=== PATIENT | male | born 1970 | race Caucasian/White ===

== ENCOUNTER → 2017-03-08 | Outpatient (CLI) | payer BC ==
--- NOTE | 2017-03-08 15:22 | XCELERA REPORT ---
[address] [address] Lower Extremity Venous Evaluation Name: LUCIO KING Age: 47 yrs Gender: Male : 1970 Patient Status: Outpatient Patient Location: Study Date: 03/08/2017 01:12 PM Procedure: Color flow and duplex imaging bilaterally of the veins of the lower extremities as well as the Common Femoral veins. Reason For Study: PAIN Ordering Physician: CYNDY TREVINO Performed By: Nasrin Swartz Right Sided Venous Evaluation Avascular mass noted near the knee, area of concern. 3.5 x 4 mm, in subcutaneous tissue. Normal vessel filling wall to wall, compression and augmentation as well as Colour flow down to the infrageniculate veins. Left Sided Venous Evaluation Normal vessel filling wall to wall, compression and augmentation as well as Colour flow down to the infrageniculate veins. Interpretation Summary No duplex evidence of DVT or obstruction in the bilateral lower extremities. Tiny area of echolucency, no vascular, near right knee. : CYNDY TREVINO > Cyndy Trevino
== END ==
LOC: SP 13:04
PROVIDERS: ATTEND Surgery
DX: M79.606 Pain in leg, unspecified (principal); M79.89 Other specified soft tissue disorders
CPT/HCPCS: 93970

== ENCOUNTER → 2017-04-14 | Outpatient (CLI) | payer BC ==
--- NOTE | 2017-04-14 15:28 | RADIOLOGY REPORT (SQ) ---
EXAM DESCRIPTION: FOOT LEFT COMPLETE COMPLETED DATE/TIME: 04/14/2017 3:11 pm REASON FOR STUDY: PAIN IN LEFT FOOT M79.672 PAIN IN LEFT FOOT COMPARISON: None. NUMBER OF VIEWS: Three views. TECHNIQUE: AP, lateral and oblique without weight bearing radiographic images acquired of the left f oot. LIMITATIONS: None. FINDINGS: MINERALIZATION: Normal. BONES: No acute fracture or dislocation. No worrisome bone lesions. Fairly prominent plantar calcanea l spur. JOINTS: No erosions. No isatu-articular osteopenia. No chondrocalcinosis. SOFT TISSUES: No swelling. No calcifications. OTHER: No other significant finding. IMPRESSION: HEEL SPUR. NO OTHER SIGNIFICANT FINDINGS. TECHNICAL DOCUMENTATION: JOB ID: [id number] [employer]- All Rights Reserved
== END ==
LOC: OD 14:51
PROVIDERS: ATTEND Nurse Practitioner Acute Care
DX: M79.672 Pain in left foot (principal); M77.32 Calcaneal spur, left foot

== ENCOUNTER 2019-02-16 13:22 | Observation (INO) | payer BC ==
--- NOTE | 2019-02-16 13:27 | ER Document Report ---
ED Medical Screen (RME) <MARIFER VINCENT - Last Filed: 02/16/19 17:01> - General Mode of Arrival: Ambulatory Information source: Patient TRAVEL OUTSIDE OF THE [place] IN LAST 30 DAYS: No <MAISHA MURARY - Last Filed: 02/17/19 10:09> - General Chief Complaint: Breathing Difficulty Stated Complaint: DIFFICULTY BREATHING Time Seen by Provider: 02/16/19 13:25 - Related Data Allergies/Adverse Reactions: No Known Allergies Allergy (Unverified 02/16/19 13:28) Physical Exam - Vital signs Vitals: Temp Pulse Resp BP Pulse Ox 97.8 F 78 16 173/91 H 98 02/16/19 13:44 02/16/19 13:44 02/16/19 13:44 02/16/19 13:44 02/16/19 13:44 Course - Laboratory Result Diagrams: 02/16/19 13:40 02/16/19 13:40 <MARIFER VINCENT - Last Filed: 02/16/19 17:01> - Laboratory Result Diagrams: 02/17/19 06:16 02/16/19 13:40 <MAISHA MURRAY - Last Filed: 02/17/19 10:09> - Vital Signs Vital signs: Temp Pulse Resp BP Pulse Ox 97.9 F 81 16 155/68 H 95 02/17/19 08:37 02/17/19 08:37 02/17/19 08:37 02/17/19 08:37 02/17/19 08:37 - Laboratory Laboratory results interpreted by me: 02/16/19 02/16/19 13:40 13:40 RBC 5.63 H Hgb 17.8 H Hct 51.3 H C-Reactive Protein 15.7 H Doctor's Discharge <MARIFER VINCENT - Last Filed: 02/16/19 17:01> <MAISHA MURRAY - Last Filed: 02/17/19 10:09> - Discharge Condition: Stable Disposition: ADMITTED OBSERVATION
[2019-02-16] MEDS ORDERED: KETOROLAC TROMETHAMINE INJ/PF 30 MG/1 ML SDV IV ONE (13:28)
[2019-02-16] MEDS ORDERED: DEXAMETHASONE SOD PHOS INJ 10 MG/1 ML VIAL IV ONE (13:28)
[2019-02-16] MEDS ORDERED: NORMAL SALINE 1000 ML 1,000 ML IV ONE (13:29)
[2019-02-16] MEDS ORDERED: AMPICILLIN SOD/SULBACTAM 3 GM VIAL IV ONE (13:52)
[2019-02-16 14:25] LABS: ABSOLUTE EOSINOPHILS # (AUTO) 0.4 10^3/uL (0.0-0.6); ABSOLUTE LYMPHOCYTES (AUTO) 2.5 10^3/uL (0.5-4.7); ABSOLUTE MONOCYTES (AUTO) 0.5 10^3/uL (0.1-1.4); ABSOLUTE NEUT (AUTO) 5.8 10^3/uL (1.7-8.2); BASOPHILS % (AUTO) 0.5 % (0-2); HEMATOCRIT 51.3 % (37.9-51.0); HEMOGLOBIN 17.8 g/dL (13.5-17.0); LYMPHOCYTES % (AUTO) 26.7 % (13-45); MEAN CORPUSCULAR HEMOGLOBIN 31.6 pg (27.0-33.4); MEAN CORPUSCULAR HGB CONC 34.7 g/dL (32.0-36.0); MEAN CORPUSCULAR VOLUME 91 fl (80-97); MONOCYTES % (AUTO) 5.8 % (3-13); PLATELET COUNT 340 10^3/uL (150-450); RED BLOOD COUNT 5.63 10^6/uL (4.35-5.55); RED CELL DISTRIBUTION WIDTH 13.3 % (11.5-14.0); TOTAL CELLS COUNTED % (AUTO) 100 %; WHITE BLOOD COUNT 9.2 10^3/uL (4.0-10.5)
[2019-02-16 14:33] LABS: ALBUMIN 4.3 g/dL (3.5-5.0); ALKALINE PHOSPHATASE 86 U/L (38-126); ANION GAP 11 (5-19); ASPARTATE AMINO TRANSFERASE 22 U/L (17-59); BILIRUBIN,DIRECT 0.1 mg/dL (0.0-0.4); BILIRUBIN,TOTAL 0.7 mg/dL (0.2-1.3); BLOOD UREA NITROGEN 9 mg/dL (7-20); C-REACTIVE PROTEIN 15.7 mg/L (<10.0); CALCIUM 9.4 mg/dL (8.4-10.2); CARBON DIOXIDE 28 mmol/L (22-30); CHLORIDE 104 mmol/L (98-107); GLUCOSE 91 mg/dL (75-110); POTASSIUM 4.3 mmol/L (3.6-5.0); TOTAL PROTEIN 7.6 g/dL (6.3-8.2)
[2019-02-16 15:08] LABS: ERYTHROCYTE SEDIMENTATION RATE 11 mm/hr (0-15)
--- NOTE | 2019-02-16 15:21 | RADIOLOGY REPORT (SQ) ---
EXAM DESCRIPTION: CT SOFT TISSUE NECK WITH COMPLETED DATE/TIME: 02/16/2019 3:05 pm REASON FOR STUDY: swelling front of neck difficulty swallowing COMPARISON: None. TECHNIQUE: Post IV contrasted scanning from skull base through lung apices with review of bone, soft tissue and lung windows. Reconstructed coronal and sagittal MPR images reviewed. All images stored on PACS. All CT scanners at this facility use dose modulation, iterative reconstruction, and/or weight based d osing when appropriate to reduce radiation dose to as low as reasonably achievable (ALARA). [facility]: Dose Right [facility]: CareDose [facility]: Dose Right [facility]: Teradose 4D [facility]: Style [employer]box CONTRAST TYPE AND DOSE: contrast/concentration: Isovue 350.00 mg/ml; Total Contrast Delivered: 75.0 ml; Total Saline Delivered: 55.0 ml RENAL FUNCTION: None required. The patient is less than 50 years old. RADIATION DOSE: CT Rad equipment meets quality standard of care and radiation dose reduction techniq ues were employed. CTDIvol: 17.6 mGy. DLP: 475 mGy-cm. . LIMITATIONS: None. FINDINGS: SKULL BASE: Intact. MAJOR SALIVARY GLANDS: No solid or cystic masses. No inflammatory changes. LYMPHADENOPATHY: Scattered relatively shotty lymph nodes in the anterior neck. Includes small submen tony nodes close to what appears to be the region of interest, measuring up to 1.1 cm in short axis. MUCOSAL MASSES OR ASYMMETRY: Mild thickening of the uvula. Mild posterior demetrius pharyngeal generalized mucosal thickening, some of which may be accentuated by congenital aberrant medial course of the car otid arteries. There is debris in the vallecula with airway narrowing at the level of the epiglottis . The epiglottis itself looks normal thickness with normal appearance of the aryepiglottic folds. LARYNX/CORDS: No abnormal findings. VASCULAR STRUCTURES: No evidence of occlusion or stenosis. No venous clot detected. LUNG APICES: Clear. BONES: Intact. THYROID: Normal size. No masses. PARANASAL SINUSES: Clear. OTHER: No other significant finding. IMPRESSION: 1. Mild adenopathy. Includes slightly conspicuous submental anterior neck nodes but no drainable abs cess. 2. Mild pharyngeal thickening. Consider pharyngitis. No evidence of discrete mucosal based mass or abscess. TECHNICAL DOCUMENTATION: JOB ID: [id number] Quality ID # [id number]: Final reports with documentation of one or more dose reduction techniques (e.g., Au tomated exposure control, adjustment of the mA and/or kV according to patient size, use of iterative reconstruction technique) 2010 [employer]- All Rights Reserved Reading location - IP/workstation name: [email or web address]
[2019-02-16] MEDS ORDERED: PROMETHAZINE HCL 25 MG TABLET PO PRN (18:36)
[2019-02-16] MEDS ORDERED: MAG HYDROX/AL HYDROX/SIMETH SUSP 30 ML UDCUP PO PRN (18:36)
[2019-02-16] MEDS ORDERED: ACETAMINOPHEN 325 MG TABLET PO PRN (18:36)
[2019-02-16] MEDS ORDERED: DOCUSATE SODIUM 100 MG CAPSULE PO PRN (18:36)
[2019-02-16] MEDS ORDERED: NORMAL SALINE 1000 ML 1,000 ML IV PRN (18:36)
[2019-02-16] MEDS ORDERED: LEVALBUTEROL HCL NEB 1.25 MG/3 ML AMPUL NEB PRN (18:36)
[2019-02-16] MEDS ORDERED: HYDRALAZINE HCL INJ/PF 20 MG/1 ML SDV IV PRN (18:59)
--- NOTE | 2019-02-16 19:29 | PDOC H&P ---
History of Present Illness Admission Date/PCP: CINDI DE DIOS MD Patient complains of: Throat pain with difficulty breathing History of Present Illness: LUCIO KING is a 49 year old male who woke up this morning at approximately 5:00 AM. He went to the bathroom. At that time he felt his throat was a little scratchy and he felt he might be getting a cold. He then went into the bathroom at 6:30 AM and by this time his throat was very sore and it was difficult to breathe. His breathing became noisy. He had discomfort in the submandibular area across the mandible. He did not experience any nausea or vomiting. He had no palpitations. He did not report swelling in any other part of his body. Because of the difficulty breathing and progression of his symptoms rather than relief he presented to the emergency department. In the emergency department it was difficult to have an extended look into the oropharynx however there was no marked swelling or areas of drainage. A CT scan revealed no soft tissue masses. He was given 10 mg of Decadron by intravenous as well as a dose of antibiotics. Otol[facility]ology at [facility] was consulted. After the steroids the patient improved. He did not have an elevated white blood cell count however he did have slight elevation in his C-reactive protein. There was no pronounced presence of eosinophils. Serum chemistries were unremarkable. He was not hypoxic and he was afebrile. The only other noticeable positive feature was his hypertension. After discussion with otolaryngology it was felt that the safest course would be to admit the patient for observation overnight for ad ditional steroids and antibiotics and if improved discharge in the morning. The patient was admitted by the hospitalist service. Past Medical History Cardiac Medical History: Reports: None Pulmonary Medical History: Reports: None EENT Medical History: Reports: None Neurological Medical History: Reports: Migraine, Other - Restless legs Endocrine Medical History: Reports: Obesity Renal/ Medical History: Reports: None Malignancy Medical History: Reports: None GI Medical History: Reports: None Musculoskeltal Medical History: Reports: Arthritis, Other - Chronic low back pain. Early onset neck pain. Skin Medical History: Reports: None Psychiatric Medical History: Reports: None Traumatic Medical History: Reports: None Hematology: Reports: None Infectious Medical History: Reports: None Past Surgical History Past Surgical History: Reports: Appendectomy, Tonsillectomy Social History Information Source: Patient Occupation: Patient is and lives at home with his and daughter. 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 Lives with: Family Smoking Status: Never Smoker Electronic Cigarette use?: No Frequency of Alcohol Use: Rare Hx Recreational Drug Use: No Drugs: None Hx Prescription Drug Abuse: No - Advance Directive Resuscitation Status: Full Code Surrogate healthcare decision maker:: His would be the designated decision maker Family History Family History: Hypertension, Other - Alcoholism with cirrhosis Parental Family History Reviewed: Yes Children Family History Reviewed: Yes Sibling(s) Family History Reviewed.: Yes Medication/Allergy Allergies/Adverse Reactions: No Known Allergies Allergy (Unverified 02/16/19 13:28) Review of Systems Constitutional: PRESENT: weight loss - Intentional weight loss 45 pounds. ABSENT: anorexia, fatigue, fever(s), headache(s), night sweats Eyes: ABSENT: visual disturbances Ears: ABSENT: hearing changes Nose, Mouth, and Throat: PRESENT: sore throat. ABSENT: headache(s), mouth pain, vertigo Cardiovascular: PRESENT: edema. ABSENT: chest pain, dyspnea on exertion, palpitations Respiratory: PRESENT: dyspnea - Prior to treatment. ABSENT: cough, hemoptysis Gastrointestinal: ABSENT: abdominal pain, constipation, diarrhea, heartburn, nausea, vomiting Genitourinary: PRESENT: nocturia. ABSENT: difficulty urinating, hematuria Musculoskeletal: PRESENT: back pain. ABSENT: deformity, joint swelling Integumentary: PRESENT: other - Recent ant bites Neurological: PRESENT: restless legs, tingling - Only on occasion in his toes.. ABSENT: abnormal gait, abnormal speech, convulsions, memory loss Psychiatric: ABSENT: anxiety, depression, hallucinations Endocrine: ABSENT: cold intolerance, heat intolerance, polyuria Hematologic/Lymphatic: ABSENT: easy bleeding, easy bruising, lymphadenopathy Allergic/Immunologic: ABSENT: seasonal rhinorrhea Physical Exam Vital Signs: Temp Pulse Resp BP Pulse Ox 97.0 F 78 20 155/87 H 95 02/16/19 17:01 02/16/19 13:44 02/16/19 18:32 02/16/19 18:32 02/16/19 18:32 Intake & Output 02/15/19 02/16/19 02/17/19 06:59 06:59 05:59 Intake Total 1000 Balance 1000 Weight 136 kg General appearance: PRESENT: no acute distress, cooperative, morbidly obese, well-developed Head exam: PRESENT: atraumatic, normocephalic Eye exam: PRESENT: conjunctiva pink, EOMI, PERRLA. ABSENT: conjunctival injection, nystagmus, scleral icterus Ear exam: PRESENT: normal external ear exam. ABSENT: bleeding, drainage Mouth exam: PRESENT: dry mucosa, neck supple, tongue midline Teeth exam: ABSENT: poor dentation Throat exam: PRESENT: post pharyngeal erythema - Mild. ABSENT: tonsillar exudate Neck exam: PRESENT: full ROM - Neck discomfort at extreme left or right rotation, other - Very large neck. ABSENT: lymphadenopathy, tenderness Respiratory exam: PRESENT: clear to auscultation monik, symmetrical, unlabored. ABSENT: accessory muscle use, rales, rhonchi, stridor, tachypnea, wheezes Cardiovascular exam: PRESENT: RRR, +S1, +S2. ABSENT: diastolic murmur, gallop, systolic murmur GI/Abdominal exam: PRESENT: normal bowel sounds, soft, other - Protuberant abdomen. ABSENT: guarding, tenderness Rectal exam: PRESENT: deferred Gentrourinary exam: ABSENT: indwelling catheter Extremities exam: PRESENT: full ROM, +1 edema, other - Right fifth finger with some swelling proximally. Some residual swelling in the hyperthenar area. ABSENT: calf tenderness, joint swelling Musculoskeletal exam: PRESENT: ambulatory, full ROM, normal inspection Neurological exam: PRESENT: alert, awake, oriented to person, oriented to place, oriented to time, oriented to situation, CN II-XII grossly intact. ABSENT: abnormal gait, motor sensory deficit Psychiatric exam: PRESENT: appropriate affect, normal mood. ABSENT: agitated, anxious Focused psych exam: ABSENT: delusional, paranoid, restlessness Skin exam: PRESENT: dry, erythema - Slight area of erythema on the right fifth finger with swelling, normal color, other - Some pigment deposition on the legs. ABSENT: rash, vesicles Results Laboratory Results: 02/16/19 13:40 02/16/19 13:40 02/16/19 02/16/19 13:40 13:40 WBC 9.2 RBC 5.63 H Hgb 17.8 H Hct 51.3 H MCV 91 MCH 31.6 MCHC 34.7 RDW 13.3 Plt Count 340 Seg Neutrophils % 63.0 Sodium 143.1 Potassium 4.3 Chloride 104 Carbon Dioxide 28 Anion Gap 11 BUN 9 Creatinine 0.73 Est GFR ( Amer) > 60 Glucose 91 Calcium 9.4 Total Bilirubin 0.7 AST 22 Alkaline Phosphatase 86 C-Reactive Protein 15.7 H Total Protein 7.6 Albumin 4.3 Impressions: Soft Tissue Neck CT 02/16/19 13:30 IMPRESSION: 1. Mild adenopathy. Includes slightly conspicuous submental anterior neck nodes but no drainable abscess. 2. Mild pharyngeal thickening. Consider pharyngitis. No evidence of discrete mucosal based mass or abscess. Assessment and Plan - Diagnosis (1) Pharyngitis, acute Qualifiers: Pharyngitis/tonsillitis etiology: unspecified etiology Qualified Code(s): J02.9 - Acute pharyngitis, unspecified Is this a current diagnosis for this admission?: Yes Plan: February 16, 2019-the patient developed an acute pharyngitis that developed early this morning and progressed to difficulty breathing by noon. He felt that his breathing was tight. He felt swollen and tender in the submandibular areas. He denied lightheadedness or dizziness. He was not exposed to any materials or agents that were new. He did not eat anything out of the ordinary relative to his regular diet. He had a slightly elevated CRP and CT scan of the neck did not show any masses. He was given 10 mg of Decadron and 1 dose of Unasyn. He stated that after the steroids he felt significant relief. The pain in the submandibular areas decreased and almost completely resolved. He did not have a sense of tight breathing. I believe the acute pharyngitis was somehow related to an allergic reaction that is unidentifiable at this time. Despite a negative rapid strep screen the mechanical engineering coop who was consulted suggested dual antibiotic therapy with Unasyn and clindamycin for tonight. Mother not we will continue these antibiotics will depend on the patient's status in the morning. (2) Acute allergic reaction Qualifiers: Encounter type: initial encounter Qualified Code(s): T78.40XA - Allergy, unspecified, initial encounter Is this a current diagnosis for this admission?: Yes Plan: February 16, 2019-as noted above I believe this is an acute allergic reaction causing the pharyngitis, swelling of the submandibular areas and difficulty breathing. The relief with IV Decadron cannot be ignored. It did not act like a parotitis. There was no abscess or other abnormal tissue finding in the neck. The CT scan was obtained after the intravenous steroid dose. He will be admitted and given additional doses of Decadron through the night. (3) Hypertension Qualifiers: Hypertension type: essential hypertension Qualified Code(s): I10 - Essential (primary) hypertension Is this a current diagnosis for this admission?: Yes Plan: February 16, 2019-the patient's blood pressure was elevated on admission. This could be secondary to his clinical state. There is, however, a strong family history of hypertension. The patient also mentioned that his ankles tend to swell. He did report and bite several days ago but this should not result in leg swelling and the leg swelling has been going on for some time. He even reports that if he eats salt the swelling gets worse. Because of the edema and systolic hypertension I have opted to start the patient on hydrochlorothiazide 25 mg daily. I will continue this at the time of discharge. He will be monitored on telemetry and have vital signs every 4 hours. (4) Edema Qualifiers: Edema type: localized Qualified Code(s): R60.0 - Localized edema Is this a current diagnosis for this admission?: Yes Plan: February 16, 2019-the edema is limited to the lower extremities. He does have some swelling on his right fifth finger but this he feels may be related to another ant bite. He has 1+ pitting edema on both legs and in fact states that it can get worse at times. 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 I explained that this could be significant and related to his high blood pressure and that he needs to follow-up with Dr. De Dios at discharge. (5) Mechanical low back pain Is this a current diagnosis for this admission?: Yes Plan: Room the 2018-the patient has a long history of mechanical back pain. He states that he "threw out his back "when he was young. It is not been the same ever since. It gets so bad that sometimes he cannot turn to the right or left. This typically happens when he is in a seated position, such as driving his truck, for extended periods. We reviewed the benefits of weight loss. Other atypical treatments such as acupuncture could be helpful. He is also starting to have neck pain and I believe this could be similarly mechanical/osteoarthritic. (6) Morbid obesity with BMI of 40.0-44.9, adult Is this a current diagnosis for this admission?: Yes Plan: February 16, 2019-the patient was congratulated since he has lost 45 pounds since he started dieting. With a body mass index of 43 he is still morbidly obese. His reports that he snores. He reports that he typically sleeps in a chair. He was not hypoxic but he certainly could have morbid obesity hypoventilation when supine. He is dieting and his states that his compliance is good. I believe this otherwise he would not have lost 45 pounds. His ongoing diet was encouraged. He must also follow low-sodium guidelines. - Plan Summary Summary: The plan is to admit the patient for observation. Continue steroids and antibiotics. I have also initiated low-dose antihypertensive medication and place the patient on a cardiac diet. He is quite dry and so I will give him ad ditional IV fluids but only at 100 mL an hour. I expect the patient to be able to go home tomorrow. I did stress the significant importance of regularly scheduled visits with his primary care provider. This will allow work-up of possible allergic etiologies of today's events. In addition close monitoring of his blood pressure, edema and possible further work-up for sleep apnea. - Time Time Spent with patient: 35 or more minutes Medications reviewed and adjusted accordingly: Yes Anticipated discharge: Home Within: within 48 hours
--- NOTE | 2019-02-16 19:34 | ADVANCED CARE ---
- Diagnosis (1) Pharyngitis, acute Diagnosis Current: Yes (2) Acute allergic reaction Diagnosis Current: Yes (3) Hypertension Diagnosis Current: Yes (4) Edema Diagnosis Current: Yes (5) Mechanical low back pain Diagnosis Current: Yes (6) Morbid obesity with BMI of 40.0-44.9, adult Diagnosis Current: Yes Attendance: This discussion was had at the bedside with the patient and his . Resuscitation Status: Full Code Discussion: Based on the patient's response when I asked about CODE STATUS I felt it was appropriate to initiate this discussion. We discussed the importance of having a living will or healthcare proxy in place. The patient and his agreed that they would not want to be kept alive artificially for an extended period of time. They would not want to live in a retirement for the remainder of the life. They do have a young child. May explain the legal standard of decision making when there is no living well. We reviewed the ability to be able to apply guidelines to your own treatment plan in the event of a catastrophic illness. I used the example of tracheostomy, PEG tube, vegetative state and permanent placement in a nursing home facility. Both and agreed that this would be appropriate. I encouraged both of them to complete such a document. 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 I also pointed out that once this document is completed it can be kept at home and if hospitalized a copy can be scanned into the patient's permanent medical record. These documents can be changed at any time but I suggested that they have several different discussions before completing such a document. Other family members should be aware of the documents and the contents. Care Planning Goals: The goals set up today are to seriously consider disposition in the event of a catastrophic illness. Specifying any limits or direction of care in the event of this type of situation. And to eventually complete the documents are only for the patient but the patient's as well. Document(s) Completed: We did not complete any documents at this encounter. Time Spent: 20 minutes
[2019-02-16] MEDS: DEXAMETHASONE SOD PHOSPHATE INJ 4 MG/1 ML VIAL IV SCH (22:16)
[2019-02-16] MEDS: FAMOTIDINE 20 MG TABLET PO SCH (22:16)
[2019-02-16] MEDS: CLINDAMYCIN 300 MG/D5W RTU 300 MG/50 ML RTUPB IV SCH (22:17)
[2019-02-16] MEDS: AMPICILLIN SODIUM/SULBACTAM NA 1.5 GM in NORMAL SALINE 50 ML IV SCH (23:26)
[2019-02-16] MEDS ORDERED: AMPICILLIN SOD/SULBACTAM 1.5 GM VIAL ONE (23:55)
[2019-02-17] MEDS: AMPICILLIN SODIUM/SULBACTAM NA 1.5 GM in NORMAL SALINE 50 ML IV SCH ×2 (02:36→09:02)
[2019-02-17] MEDS ORDERED: INFLUENZA QUAD (6MOS+) 2019-20 VAC 0.5 ML SYR IM ONE (04:07)
--- NOTE | 2019-02-17 06:11 | ER Document Report ---
ED General - General Chief Complaint: Sore Throat Stated Complaint: DIFFICULTY BREATHING Time Seen by Provider: 02/16/19 13:25 Mode of Arrival: Ambulatory TRAVEL OUTSIDE OF THE [place] IN LAST 30 DAYS: No - Related Data Allergies/Adverse Reactions: No Known Allergies Allergy (Unverified 02/16/19 13:28) Past Medical History - General Information source: Patient - Social History Smoking Status: Never Smoker Chew tobacco use (# tins/day): No Frequency of alcohol use: None Drug Abuse: None Lives with: Family Family History: Hypertension, Other - Alcoholism with cirrhosis Patient has suicidal ideation: No Patient has homicidal ideation: No - Past Medical History Cardiac Medical History: Reports: None Pulmonary Medical History: Reports: None EENT Medical History: Reports: None Neurological Medical History: Reports: Hx Migraine, Other - Restless legs Renal/ Medical History: Reports: None Malignancy Medical History: Reports None GI Medical History: Reports: None Musculoskeletal Medical History: Reports Hx Arthritis, Reports Other - Chronic low back pain. Early onset neck pain. Skin Medical History: Reports None Psychiatric Medical History: Reports: None Traumatic Medical History: Reports: None Infectious Medical History: Reports: None Past Surgical History: Reports: Hx Appendectomy, Hx Tonsillectomy Physical Exam - Vital signs Vitals: Temp Pulse Resp BP Pulse Ox 97.8 F 78 16 173/91 H 98 02/16/19 13:44 02/16/19 13:44 02/16/19 13:44 02/16/19 13:44 02/16/19 13:44 Course - Vital Signs Vital signs: Temp Pulse Resp BP Pulse Ox 97.6 F 76 19 135/63 H 93 02/17/19 04:17 02/17/19 04:17 02/17/19 04:17 02/17/19 04:17 02/17/19 04:17 - Laboratory Result Diagrams: 02/16/19 13:40 02/16/19 13:40 Laboratory results interpreted by me: 02/16/19 02/16/19 13:40 13:40 RBC 5.63 H Hgb 17.8 H Hct 51.3 H C-Reactive Protein 15.7 H Discharge - Discharge Condition: Stable Disposition: ADMITTED OBSERVATION
[2019-02-17] MEDS: CLINDAMYCIN 300 MG/D5W RTU 300 MG/50 ML RTUPB IV SCH ×2 (06:24→14:52)
[2019-02-17 06:36] LABS: ABSOLUTE BASOPHILS # (AUTO) 0.1 10^3/uL (0.0-0.2); ABSOLUTE MONOCYTES (AUTO) 0.4 10^3/uL (0.1-1.4); BASOPHILS % (AUTO) 0.8 % (0-2); HEMATOCRIT 48.3 % (37.9-51.0); HEMOGLOBIN 16.9 g/dL (13.5-17.0); LYMPHOCYTES % (AUTO) 5.9 % (13-45); MEAN CORPUSCULAR HEMOGLOBIN 31.8 pg (27.0-33.4); MEAN CORPUSCULAR VOLUME 91 fl (80-97); MONOCYTES % (AUTO) 2.1 % (3-13); PLATELET COUNT 356 10^3/uL (150-450); RED BLOOD COUNT 5.32 10^6/uL (4.35-5.55); SEGMENTED NEUTROPHILS % (AUTO) 91.2 % (42-78); TOTAL CELLS COUNTED % (AUTO) 100 %; WHITE BLOOD COUNT 16.5 10^3/uL (4.0-10.5)
[2019-02-17] MEDS: DEXAMETHASONE SOD PHOSPHATE INJ 4 MG/1 ML VIAL IV SCH (09:00)
[2019-02-17] MEDS: FAMOTIDINE 20 MG TABLET PO SCH (09:01)
[2019-02-17] MEDS ORDERED: ENOXAPARIN SODIUM INJ 40 MG/0.4 ML DISP.SYRIN SUBCUT SCH (10:00)
[2019-02-17] MEDS ORDERED: HYDROCHLOROTHIAZIDE 25 MG TABLET PO SCH (10:00)
--- NOTE | 2019-02-17 10:09 | ER Document Report ---
ED Medical Screen (RME) - General Chief Complaint: Sore Throat Stated Complaint: DIFFICULTY BREATHING Time Seen by Provider: 02/16/19 13:25 Mode of Arrival: Ambulatory Notes: 49-year-old male presented to ED for difficulty breathing with a sore throat lump just below his chin. Labs medications and CTs ordered. I have greeted and performed a rapid initial assessment of this patient. A comprehensive ED assessment and evaluation of the patient, analysis of test results and completion of medical decision making process will be conducted by an additional ED providers. TRAVEL OUTSIDE OF THE [place] IN LAST 30 DAYS: No - Related Data Allergies/Adverse Reactions: No Known Allergies Allergy (Unverified 02/16/19 13:28) Past Medical History - Social History Chew tobacco use (# tins/day): No Frequency of alcohol use: None Drug Abuse: None - Past Medical History Cardiac Medical History: Reports: None Pulmonary Medical History: Reports: None EENT Medical History: Reports: None Neurological Medical History: Reports: Hx Migraine, Other - Restless legs Renal/ Medical History: Reports: None Malignancy Medical History: Reports None GI Medical History: Reports: None Musculoskeltal Medical History: Reports Hx Arthritis, Reports Other - Chronic low back pain. Early onset neck pain. Skin Medical History: Reports None Psychiatric Medical History: Reports: None Traumatic Medical History: Reports: None Infectious Medical History: Reports: None Past Surgical History: Reports: Hx Appendectomy, Hx Tonsillectomy Physical Exam - Vital signs Vitals: Temp Pulse Resp BP Pulse Ox 97.8 F 78 16 173/91 H 98 02/16/19 13:44 02/16/19 13:44 02/16/19 13:44 02/16/19 13:44 02/16/19 13:44 Course - Vital Signs Vital signs: Temp Pulse Resp BP Pulse Ox 97.9 F 81 16 155/68 H 95 02/17/19 08:37 02/17/19 08:37 02/17/19 08:37 02/17/19 08:37 02/17/19 08:37 - Laboratory Result Diagrams: 02/17/19 06:16 02/16/19 13:40 Laboratory results interpreted by me: 02/16/19 02/16/19 13:40 13:40 RBC 5.63 H Hgb 17.8 H Hct 51.3 H C-Reactive Protein 15.7 H Doctor's Discharge - Discharge Condition: Stable Disposition: ADMITTED OBSERVATION
--- NOTE | 2019-02-17 13:36 | PDOC DISCHARGE SUMMARY ---
Impression - Admit/DC Date/PCP Admission Date/Primary Care Provider: 02/16/19 19:10 CINDI DE DIOS MD Discharge Date: 02/17/19 - Discharge Diagnosis (1) Pharyngitis, acute Is this a current diagnosis for this admission?: Yes (2) Acute allergic reaction Is this a current diagnosis for this admission?: Yes (3) Hypertension Is this a current diagnosis for this admission?: Yes (4) Edema Is this a current diagnosis for this admission?: Yes (5) Mechanical low back pain Is this a current diagnosis for this admission?: Yes (6) Morbid obesity with BMI of 40.0-44.9, adult Is this a current diagnosis for this admission?: Yes - Assessment Summary: The plan is to admit the patient for observation. Continue steroids and antibiotics. I have also initiated low-dose antihypertensive medication and place the patient on a cardiac diet. He is quite dry and so I will give him additional IV fluids but only at 100 mL an hour. I expect the patient to be able to go home tomorrow. I did stress the significant importance of regularly scheduled visits with his primary care provider. This will allow work-up of possible allergic etiologies of today's events. In addition close monitoring of his blood pressure, edema and possible further work-up for sleep apnea. - Additional Information Resuscitation Status: Full Code Discharge Diet: Cardiac Discharge Activity: Activity As Tolerated Referrals: CINDI DE DIOS MD [Primary Care Provider] - (Follow-up with Dr. De Dios later this week. Patient's promised to make arrangements.) Prescriptions: Amox Tr/Potassium Clavulanate [Augmentin 875-125 mg Tablet] 1 tab PO BID #14 tablet Lisinopril/Hydrochlorothiazide [Lisinopril-Hctz 10-12.5 mg Tab] 1 each PO DAILY 14 Days #14 tablet Methylprednisolone [Medrol Dosepack (4 mg/Tab) 21 Tab/Dosepak] 4 mg PO ASDIR PRN #21 tab.ds.pk PRN Reason: Home Medications: Amox Tr/Potassium Clavulanate [Augmentin 875-125 mg Tablet] 1 tab PO BID #14 tablet 02/17/19 Lisinopril/Hydrochlorothiazide [Lisinopril-Hctz 10-12.5 mg Tab] 1 each PO DAILY 14 Days #14 tablet 02/17/19 Methylprednisolone [Medrol Dosepack (4 mg/Tab) 21 Tab/Dosepak] 4 mg PO ASDIR PRN #21 tab.ds.pk 02/17/19 History of Present Illiness History of Present Illness: LUCIO KING is a 49 year old male who woke up this morning at approximately 5:00 AM. He went to the bathroom. At that time he felt his throat was a little scratchy and he felt he might be getting a cold. He then went into the bathroom at 6:30 AM and by this time his throat was very sore and it was difficult to jose athe. His breathing became noisy. He had discomfort in the submandibular area across the mandible. He did not experience any nausea or vomiting. He had no palpitations. He did not report swelling in any other part of his body. Because of the difficulty breathing and progression of his symptoms rather than relief he presented to the emergency department. In the emergency department it was difficult to have an extended look into the oropharynx however there was no marked swelling or areas of drainage. A CT scan revealed no soft tissue masses. He was given 10 mg of Decadron by intravenous as well as a dose of antibiotics. Otolaryngology at [facility] was consulted. After the steroids the patient improved. He did not have an elevated white blood cell count however he did have slight elevation in his C-reactive protein. There was no pronounced presence of eosinophils. Serum chemistries were unremarkable. He was not hypoxic and he was afebrile. The only other noticeable positive feature was his hypertension. After discussion with otolaryngology it was felt that the safest course would be to admit the patient for observation overnight for additional steroids and antibiotics and if improved discharge in the morning. The patient was admitted by the hospitalist service. Hospital Course Hospital Course: The patient had an unremarkable hospital course. His symptoms cleared with steroids. Antibiotics were suggested via a phone consultation with otolaryngology from the emergency department physician. His breathing continued to improve. His blood pressure was still elevated but he is on steroids. Multiple suggestions were made for follow-up care. Because of his hypertension I did initiate antihypertensive therapy during this hospitalization. Even though it is felt that this is allergy mediated I will continue the Augmentin therapy for 1 week. Physical Exam Vital Signs: Temp Pulse Resp BP Pulse Ox 98.3 F 76 20 160/70 H 94 02/17/19 11:41 02/17/19 11:41 02/17/19 11:41 02/17/19 11:41 02/17/19 11:41 Intake & Output 02/16/19 02/17/19 02/18/19 07:59 06:59 06:59 Intake Total 700 Output Total Balance 700 Weight General appearance: PRESENT: no acute distress, morbidly obese Respiratory exam: PRESENT: clear to auscultation monik, symmetrical, unlabored. ABSENT: rales, rhonchi, tachypnea, wheezes Cardiovascular exam: PRESENT: RRR, +S1, +S2 GI/Abdominal exam: PRESENT: normal bowel sounds, soft, other - Protuberant abdomen. ABSENT: tenderness Extremities exam: PRESENT: +1 edema Musculoskeletal exam: PRESENT: ambulatory, normal inspection. ABSENT: deformity Neurological exam: PRESENT: alert, awake, oriented to person, oriented to place, oriented to time, oriented to situation, CN II-XII grossly intact Psychiatric exam: PRESENT: appropriate affect, normal mood. ABSENT: agitated, anxious Focused psych exam: ABSENT: delusional, restlessness Results Laboratory Results: WBC 16.5 10^3/uL (4.0-10.5) H 02/17/19 06:16 RBC 5.32 10^6/uL (4.35-5.55) 02/17/19 06:16 Hgb 16.9 g/dL (13.5-17.0) 02/17/19 06:16 Hct 48.3 % (37.9-51.0) 02/17/19 06:16 MCV 91 fl (80-97) 02/17/19 06:16 MCH 31.8 pg (27.0-33.4) 02/17/19 06:16 MCHC 35.0 g/dL (32.0-36.0) 02/17/19 06:16 RDW 13.0 % (11.5-14.0) 02/17/19 06:16 Plt Count 356 10^3/uL (150-450) 02/17/19 06:16 Lymph % (Auto) 5.9 % (13-45) L 02/17/19 06:16 [place] % (Auto) 2.1 % (3-13) L 02/17/19 06:16 Eos % (Auto) 0.0 % (0-6) 02/17/19 06:16 Baso % (Auto) 0.8 % (0-2) 02/17/19 06:16 Absolute Neuts (auto) 15.0 10^3/uL (1.7-8.2) H 02/17/19 06:16 Absolute Lymphs (auto) 1.0 10^3/uL (0.5-4.7) 02/17/19 06:16 Absolute Monos (auto) 0.4 10^3/uL (0.1-1.4) 02/17/19 06:16 Absolute Eos (auto) 0.0 10^3/uL (0.0-0.6) 02/17/19 06:16 Absolute Basos (auto) 0.1 10^3/uL (0.0-0.2) 02/17/19 06:16 Seg Neutrophils % 91.2 % (42-78) H 02/17/19 06:16 ESR 11 mm/hr (0-15) 02/16/19 13:40 Sodium 143.1 mmol/L (137-145) 02/16/19 13:40 Potassium 4.3 mmol/L (3.6-5.0) 02/16/19 13:40 Chloride 104 mmol/L (98-107) 02/16/19 13:40 Carbon Dioxide 28 mmol/L (22-30) 02/16/19 13:40 Anion Gap 11 (5-19) 02/16/19 13:40 BUN 9 mg/dL (7-20) 02/16/19 13:40 Creatinine 0.73 mg/dL (0.52-1.25) 02/16/19 13:40 Est GFR ( Amer) > 60 (>60) 02/16/19 13:40 Est GFR (MDRD) Non-Af > 60 (>60) 02/16/19 13:40 Glucose 91 mg/dL (75-110) 02/16/19 13:40 Calcium 9.4 mg/dL (8.4-10.2) 02/16/19 13:40 Total Bilirubin 0.7 mg/dL (0.2-1.3) 02/16/19 13:40 Direct Bilirubin 0.1 mg/dL (0.0-0.4) 02/16/19 13:40 Neonat Total Bilirubin Not Reportable 02/16/19 13:40 Neonat Direct Bilirubin Not Reportable 02/16/19 13:40 Neonat Indirect Bili Not Reportable 02/16/19 13:40 AST 22 U/L (17-59) 02/16/19 13:40 ALT 27 U/L (<50) 02/16/19 13:40 Alkaline Phosphatase 86 U/L (38-126) 02/16/19 13:40 C-Reactive Protein 14.8 mg/L (<10.0) H 02/17/19 06:16 Total Protein 7.6 g/dL (6.3-8.2) 02/16/19 13:40 Albumin 4.3 g/dL (3.5-5.0) 02/16/19 13:40 Monotest NEGATIVE (NEGATIVE) 02/16/19 13:40 Group A Strep Rapid NEGATIVE (NEGATIVE) 02/16/19 13:30 Impressions: Soft Tissue Neck CT 02/16/19 13:30 IMPRESSION: 1. Mild adenopathy. Includes slightly conspicuous submental anterior neck nodes but no drainable abscess. 2. Mild pharyngeal thickening. Consider pharyngitis. No evidence of discrete mucosal based mass or abscess. Plan Health Concerns: Family history of hypertension, morbid obesity and likely obstructive sleep apnea. Plan of Treatment: The patient should continue his keto diet. He has lost 45 pounds already. He needs to add low-sodium to his regimen. He will continue with lisinopril/hydrochlorothiazide at discharge for his elevated blood pressure. Strongly suggested that he purchase a home blood pressure monitoring device. I instructed his to measure the circumference of his upper arm to ensure that she has the right size cuff for the blood pressure machine. I recommended keeping a log of blood pressures. He will complete the Medrol Dosepak and antibiotics as ordered. He does need a sleep study as I believe he has obstructive sleep apnea. Lastly, I believe this was allergy mediated possibly by an insect bite. I have suggested following up on allergy testing. Goals: Blood pressure control, ongoing weight loss, diagnosis and treatment of obstructive sleep apnea and identifying potential allergy etiologies for this episode. Time Spent: Greater than 30 Minutes Stroke Is this a Stroke Patient?: No Acute Heart Failure - Is this a Heart Failure Patient?: No
[2019-02-17 15:04] VITALS: BP 150/78
== END 2019-02-17 15:53 | disposition home or self-care (01) ==
LOC: ER 13:22 → EH 19:10 → 4S 20:46
PROVIDERS: ADMIT Hospitalist; ATTEND Hospitalist
DX: J02.9 Acute pharyngitis, unspecified (principal); T78.40XA Allergy, unspecified, initial encounter; X58.XXXA Exposure to other specified factors, initial encounter; I10 Essential (primary) hypertension; R60.9 Edema, unspecified; G89.29 Other chronic pain; M54.5 Low back pain; E66.01 Morbid (severe) obesity due to excess calories; R06.00 Dyspnea, unspecified; D72.829 Elevated white blood cell count, unspecified; M19.90 Unspecified osteoarthritis, unspecified site; G25.81 Restless legs syndrome; R60.0 Localized edema; M54.2 Cervicalgia; R06.83 Snoring; Z68.41 Body mass index [BMI] 40.0-44.9, adult; Z82.49 Family history of ischemic heart disease and other diseases of the circulatory system; Z23 Encounter for immunization
CPT/HCPCS: 99284; 96361; 96375; 96365; 36415 ×2; 87070; 87880; 85025 ×2; 85652; 86140 ×2; 87077; 86308; 80053; 70491; 90686; G0378 ×3; J3490 ×2; J1100 ×3; J0295 ×3; J1885; J7030 ×2